=== PATIENT | male | born 1955 | race Caucasian/White ===

== ENCOUNTER 2023-05-29 06:20 | Day surgery (SDC) | payer MEDICARE, OTHER, SELFPAY ==
[2023-05-29] VITALS (8 sets, daily range): BP systolic 119–165; BP diastolic 71–88; BMI 26.0
== END 2023-05-29 15:00 | disposition home or self-care (01) ==
LOC: SDS 06:20
PROVIDERS: ATTENDING PHYSICIAN Internal Medicine Gastroenterology
DX: K57.10 Diverticulosis of small intestine without perforation or abscess without bleeding (principal); Z15.09 Genetic susceptibility to other malignant neoplasm; Z12.89 Encounter for screening for malignant neoplasm of other sites
CPT/HCPCS: 43231; 88305